=== PATIENT | female | born 1960 | race Caucasian/White ===

== ENCOUNTER 2016-10-15 17:09 | Inpatient (IN) | payer OTHER ==
[~2016-10-15] VITALS: Ht 152.4 cm; Wt 52.6 kg
[~2016-10-15 17:09] MED LIST: AMLO-218 PO; HYDR-902 PO; IBUP800T25 PO
[2016-10-15 21:30] VITALS: Ht 152.4 cm; Wt 52.6 kg
[2016-10-15 22:15] VITALS: BP 119/58; RESP 20
[2016-10-15] MEDS ORDERED: GABA300C16 PO (22:25)
[2016-10-15] MEDS ORDERED: HYDR25TA6 PO (22:26)
[2016-10-15] MEDS ORDERED: LOSA100T7 PO (22:27)
[2016-10-15] MEDS ORDERED: OMEP20CA16 PO (22:29)
[2016-10-15] MEDS ORDERED: METHYLPRED. NA SUCC 1,000 MG in DEXTROSE 5% 50 ML IVPB SCH (22:30)
[2016-10-15] MEDS: HYDROCODONE/APAP (10/325) TAB PO PRN (22:55)
[2016-10-15] MEDS: GABAPENTIN 300 MG CAP PO SCH (23:26)
[2016-10-15] MEDS: DOCUSATE SODIUM 100 MG CAP PO SCH (23:26)
[2016-10-15] MEDS ORDERED: ACETAMINOPHEN 325 MG TAB PO PRN (23:30)
[2016-10-15] MEDS ORDERED: NACL 0.9% 3 ML SYG IV SCH (23:30)
--- NOTE | 2016-10-15 23:59 | HP ---
Date/Time of Note Date/Time of Note DATE: 10/15/16 TIME: 23:59 Assessment/Plan VTE Prophylaxis VTE Prophylaxis Intervention: SCD's Assessment/Plan Chief Complaint/Hosp Course This is a 56 year female being admitted to the [facility] floor for: #1 possible MS exacerbation: At the current time we will continue patient on IV said try Medrol 1000 mg every 24 hours. Patient received an initial dose at the transferring facility, I will continue this treatment timed every 24hrs from her inital dose at the transferring facility. Will consult neurology, we will see if patient's outpatient neurologist comes to [facility]. Will also continue patient's home medications. #2 Speech/swallow dysfunction: We will order ultrasound of the neck to evaluate the thyroid as her imaging studies that show possible lesion in the thyroid, consult ENT. #3 thyroid lesion: Though there is no overt lesion palpated on examination there was one seen on the MRI studies. Will order ultrasound of the thyroid for further evaluation. Will order thyroid studies. #4 hypertension: Continue patient's home medications #5 hyperlipidemia: Continue patient's home medication DVT and GI prophylaxis: SCDs, Protonix Further treatment strategy as per the clinical course Problems: HPI/ROS Admit Date/Time Admit Date/Time Oct 15, 2016 at 21:03 Hx of Present Illness Chief complaint: Body aches, weakness This is a 56 year female who was transferred from an outside facility complaining of body aches and feeling dizzy since Tuesday. Patient was visiting [place] and was in a [facility] she started noticing symptoms of body aches and dizziness and numbness and soreness in her legs. At the current time she still feels weak in her left lower extremity compared to her right. She was diagnosed with possible MS approximately 6 years ago however was never confirmed. She recently was seen by a new neurologist who ordered an MRI scan which showed possible demyelinating disease representing possible multiple sclerosis. She is scheduled to go back to him to order lumbar tap. The daughter does state that the family has noticed some changes in her speech over the last year approximately at times difficult for them to understand her. Patient also states that at times she notices a lot of saliva that she has a swallow however denies any pain on swallowing. Allergies: NKDA Medications: See WINSOME SANTANA Const: As per HPI Eyes : No pain discharge or redness or change in visual acuity ENT: As per HPI Respiratory: No shortness of breath, cough, sputum, wheezing, or pleuritic pain Cardiovascular: No chest pain, palpitation, PND, or edema GI : no change in appetite, abdominal pain, nausea, vomiting, diarrhea, constipation, or change in the color his stool Genitourinary: No dysuria, hematuria, flank pain , discharge or CVA tenderness Musculoskeletal: As per HPI Skin: No rash, bruising or hives Neuro: As per HPI Endocrine: No polyuria, polydipsia, temperature intolerance Psych: No hallucination, depression, anxiety or suicidal ideation PMH/Family/Social Past Medical History Possible multiple sclerosis, hypertension, hyperlipidemia Past Surgical History 4, cholecystectomy Family History Significant Family History: diabetes (Mom), hypertension Social History Alcohol Use: none Smoking Status: Never smoker Drug Use: none Exam/Review of Systems Vital Signs Vitals Vital Signs Date Time Temp Pulse Resp B/P Pulse Ox O2 Delivery O2 Flow Rate FiO2 10/15/16 22:15 98.3 96 20 119/58 96 Exam Exam General: Patient is a well-developed female laying in bed in no acute distress HEENT: Atraumatic, normocephalic. The pupils are equal, round and reactive. Extraocular motor are intact Neck: Supple with full range of motion. No rigidity or meningismus Chest: Nontender Lungs: Clear to auscultation bilaterally no crackles rales or wheezing Heart: Normal S1-S2, Regular rhythm and rate. No murmur, S3, or S4 Abdomen: Soft , nontender, nondistended , bowel sounds are present. No guarding no rebound tenderness , No masses or organomegaly. No costovertebral temporal angle mass Extremities: Normal to inspection, no edema no cyanosis Neurologic: Normal mental status, speech appears relatively normal though she is whispering, cranial nerves II through XII are intact, motor and sensory are intact, there does appear to be some mild weakness of the left lower extremity compared to the right. Bilateral upper extremities strength is 5 out of 5 Additional Comments Outpatient MRI records were reviewed. Shows possibility of the myelinating disease representing possible multiple sclerosis. Please please see images in the chart for further information Medications Medications Current Medications Methylprednisolone Sodium Succinate/ Dextrose (Solu-Medrol/D5W) 50 ml @ 100 mls /hr Q24H IVPB ; Start 10/16/16 at 16:00 Acetaminophen/ Hydrocodone Bitart ([place] (10/325)) 1 tab Q6H PRN PO PAIN Last administered on 10/15/16 22:55; Admin Dose 1 TAB; Start 10/15/16 at 22:30 Ondansetron HCl (Zofran Inj) 4 mg Q6H PRN IV NAUSEA AND/OR VOMITING; Start at 23:30 Acetaminophen (Tylenol Tab) 650 mg Q6H PRN PO PAIN LEVEL 1-3 OR FEVER; Start at 23:30 Docusate Sodium (Colace) 100 mg Q12H PO Last administered on 10/15/16 23:26; Admin Dose 100 MG; Start 10/15/16 at 23:30 Bisacodyl (Dulcolax) 5 mg DAILY PO ; Start 10/16/16 at 09:00 Pantoprazole (Protonix Iv) 40 mg DAILY@06 IV ; Start 10/16/16 at 06:00 Amlodipine Besylate (Norvasc) 10 mg DAILY PO ; Start 10/16/16 at 09:00 Gabapentin (Neurontin) 300 mg BID PO Last administered on 10/15/16 23:26; Admin Dose 300 MG; Start 10/15/16 at 23:30 Hydrochlorothiazide (Hydrochlorothiazide) 25 mg DAILY PO ; Start 10/16/16 at 09: 00 Losartan Potassium (Cozaar) 100 mg DAILY PO ; Start 10/16/16 at 09:00 CLIVE ZURITA Oct 15, 2016 23:59
[2016-10-16 02:00] VITALS: BP 112/60; RESP 20
[2016-10-16] MEDS: PANTOPRAZOLE 40 MG INJ IV SCH (06:58)
[2016-10-16 07:25] VITALS: BP 128/59; RESP 18
[2016-10-16 07:33] LABS: ADD SCAN DIFF NO
[2016-10-16 07:39] LABS: HEMATOCRIT 36.9 % (37.0-47.0); HEMOGLOBIN 12.5 g/dl (12.0-16.0); MEAN CORPUSCULAR HEMOGLOBIN 29.6 pg (29.0-33.0); MEAN CORPUSCULAR HGB CONC 33.9 g/dl (32.0-37.0); MEAN CORPUSCULAR VOLUME 87.4 fl (82.0-101.0); MEAN PLATELET VOLUME 10.2 fl (7.4-10.4); PLATELET COUNT 279 10^3/UL (140-415); RED BLOOD COUNT 4.22 10^6/ul (4.20-5.40); WHITE BLOOD COUNT 9.2 10^3/ul (4.8-10.8)
[2016-10-16 07:57] LABS: ALBUMIN 4.7 g/dl (3.3-4.9); ALBUMIN/GLOBULIN RATIO 1.62; BILIRUBIN,INDIRECT 0.4 mg/dl (0-1.1); BILIRUBIN,TOTAL 0.4 mg/dl (0.2-1.3); CALCIUM 10.4 mg/dl (8.4-10.2); CHOL/HDL RATIO 3.6 RATIO; CREATININE 0.8 mg/dl (0.44-1.00); POTASSIUM 4.3 mmol/L (3.5-5.1); TOTAL PROTEIN 7.6 g/dl (6.1-8.1)
[2016-10-16] MEDS: HYDROCODONE/APAP (10/325) TAB PO PRN (09:10)
[2016-10-16] MEDS: BISACODYL (EC) 5 MG TAB PO SCH (09:10)
[2016-10-16] MEDS: AMLODIPINE 10 MG TAB PO SCH (09:11)
[2016-10-16] MEDS: BACLOFEN 10 MG TAB PO SCH ×3 (09:11→20:21)
[2016-10-16] MEDS: HYDROCHLOROTHIAZIDE 25 MG TAB PO SCH (09:11)
[2016-10-16] MEDS: LOSARTAN 50 MG TAB PO SCH (09:11)
[2016-10-16] MEDS: GABAPENTIN 300 MG CAP PO SCH ×2 (09:11→20:21)
[2016-10-16 09:19] LABS: THYROID STIMULATING HORMONE 0.292 MIU/L (0.465-4.680)
--- NOTE | 2016-10-16 10:31 | RADRPT ---
PROCEDURE: US Thyroid. CLINICAL INDICATION: Thyroid nodule. TECHNIQUE: High-resolution sonography of the thyroid was performed in the axial and sagittal plane s. COMPARISON: None. FINDINGS: The right lobe measures 4.9 x 1.3 x 1.4 cm. The left lobe measures 4.6 x 1.3 x 1.7 cm. The isthmus measures 0.2 cm. There is a cystic nodule in the mid right lobe measuring 0.6 x 0.7 x 0.5 cm, a hypoechoic nodule in the mid right lobe measuring 0.2 cm, a cystic nodule in the mid left lobe measuring 0.6 x 0.6 x 0.4 cm. Thyroid echogenicity is normal. The thyroid is normal in size. IMPRESSION: 1. Small nodules bilaterally, probably benign. No further evaluation required. 2. Otherwise normal thyroid ultrasound. RPTAT: QQ .Mingo Preston MD, Date Time Electronically viewed and signed by .Mingo Preston MD, on 10/16/2016 10:31 .R/
[2016-10-16] MEDS: DOCUSATE SODIUM 100 MG CAP PO SCH (12:11)
[2016-10-16 13:28] LABS: LYMPHOCYTES # 0.9 10^3/ul (0.8-2.9); NEUTROPHIL # 8.2 10^3/ul (1.6-7.5)
[2016-10-16 14:25] VITALS: BP 108/66; RESP 18
[2016-10-16] MEDS: METHYLPRED. NA SUCC 1,000 MG in DEXTROSE 5% 50 ML IVPB SCH (17:37)
--- NOTE | 2016-10-16 19:30 | HP ---
Date/Time of Note Date/Time of Note DATE: 10/16/16 TIME: 19:28 Assessment/Plan VTE Prophylaxis VTE Prophylaxis Intervention: SCD's Lines/Catheters [facility]from [facility] Saline Lock Urinary Cath still in place: No Assessment/Plan Assessment/Plan This is a 56 year female being admitted to the [facility] floor for: #1 possible MS exacerbation: Continue high dose steroids for 3 days await neurology review and recs RE: Lumbar puncture, defer to neurology Start meclizine PRN if dizziness becomes a problem #2 TSH low: Repeat and get full thyroid profile, F/u thyroid USS #3 hypertension: Continue patient's home medications #4 hyperlipidemia: Continue patient's home medication DVT and GI prophylaxis: SCDs, Protonix Further treatment strategy as per the clinical course HPI/ROS Admit Date/Time Admit Date/Time Oct 15, 2016 at 21:03 Hx of Present Illness Patient remains lethargic with occasional dizziness. not dizzy at this time. doesn't want meclizine PMH/Family/Social Social History Alcohol Use: none Smoking Status: Never smoker Drug Use: none Exam/Review of Systems Vital Signs Vitals Vital Signs Date Time Temp Pulse Resp B/P Pulse Ox O2 Delivery O2 Flow Rate FiO2 10/16/16 14:25 98.0 80 18 108/66 93 Intake and Output 10/15/16 10/15/16 10/16/16 15:00 23:00 07:00 Intake Total 240 ml Balance 240 ml Exam Exam General: Patient is a well-developed female laying in bed in no acute distress, lethargic HEENT: Atraumatic, normocephalic. The pupils are equal, round and reactive. Extraocular motor are intact Neck: Supple with full range of motion. No rigidity or meningismus Chest: Nontender Lungs: Clear to auscultation bilaterally no crackles rales or wheezing Heart: Normal S1-S2, Regular rhythm and rate. No murmur, S3, or S4 Abdomen: Soft , nontender, nondistended , bowel sounds are present. No guarding no rebound tenderness , No masses or organomegaly. No costovertebral temporal angle mass Extremities: Normal to inspection, no edema no cyanosis Neurologic: Normal mental status, spech normal, cranial nerves II through XII are intact, motor and sensory are intact, agree with mild weakness of the left lower extremity compared to the right. Bilateral upper extremities strength is 5 out of 5 Labs Result Diagram: 10/16/16 0658 10/16/16 06 Medications Medications Current Medications Methylprednisolone Sodium Succinate/ Dextrose (Solu-Medrol/D5W) 50 ml @ 100 mls /hr Q24H IVPB Last administered on 10/16/16 17:37; Admin Dose 100 MLS/HR; Start 10/16/16 at 16:00 Acetaminophen/ Hydrocodone Bitart ([place] (10/325)) 1 tab Q6H PRN PO PAIN Last administered on 10/16/16 09:10; Admin Dose 1 TAB; Start 10/15/16 at 22:30 Ondansetron HCl (Zofran Inj) 4 mg Q6H PRN IV NAUSEA AND/OR VOMITING; Start at 23:30 Acetaminophen (Tylenol Tab) 650 mg Q6H PRN PO PAIN LEVEL 1-3 OR FEVER; Start at 23:30 Docusate Sodium (Colace) 100 mg Q12H PO Last administered on 10/16/16 12:11; Admin Dose 100 MG; Start 10/15/16 at 23:30 Bisacodyl (Dulcolax) 5 mg DAILY PO Last administered on 10/16/16 09:10; Admin Dose 5 MG; Start 10/16/16 at 09:00 Pantoprazole (Protonix Iv) 40 mg DAILY@06 IV Last administered on 10/16/16 06: 58; Admin Dose 40 MG; Start 10/16/16 at 06:00 Amlodipine Besylate (Norvasc) 10 mg DAILY PO Last administered on 10/16/16 09: 11; Admin Dose 10 MG; Start 10/16/16 at 09:00 Gabapentin (Neurontin) 300 mg BID PO Last administered on 10/16/16 09:11; Admin Dose 300 MG; Start 10/15/16 at 23:30 Hydrochlorothiazide (Hydrochlorothiazide) 25 mg DAILY PO Last administered on 09:11; Admin Dose 25 MG; Start 10/16/16 at 09:00 Losartan Potassium (Cozaar) 100 mg DAILY PO Last administered on 10/16/16 09: 11; Admin Dose 100 MG; Start 7/15/17 at 09:00 Baclofen (Lioresal) 5 mg TID PO Last administered on 10/16/16t 12:11; Admin Dose 5 MG; Start 10/16/16 at 09:00 KEILA COLLINS Oct 16, 2016 19:30
[2016-10-16 20:47] VITALS: BP 103/54; RESP 20
[2016-10-17 02:00] VITALS: BP 123/60; RESP 20
[2016-10-17] MEDS: PANTOPRAZOLE 40 MG INJ IV SCH (05:37)
[2016-10-17 06:24] LABS: ADD SCAN DIFF NO
[2016-10-17 06:29] LABS: BASOPHILS % 0.1 % (0.0-2.0); HEMATOCRIT 35.4 % (37.0-47.0); LYMPHOCYTES # 1.1 10^3/ul (0.8-2.9); LYMPHOCYTES % 6.4 % (15.0-51.0); MEAN CORPUSCULAR HGB CONC 33.9 g/dl (32.0-37.0); MEAN CORPUSCULAR VOLUME 88.5 fl (82.0-101.0); MEAN PLATELET VOLUME 10.1 fl (7.4-10.4); MONOCYTE # 0.3 10^3/ul (0.3-0.9); MONOCYTES % 1.6 % (0.0-11.0); NEUTROPHIL # 16.1 10^3/ul (1.6-7.5); NEUTROPHILS % 91.2 % (39.0-77.0); PLATELET COUNT 287 10^3/UL (140-415); RED CELL DISTRIBUTION WIDTH 12.9 % (11.5-14.5); WHITE BLOOD COUNT 17.7 10^3/ul (4.8-10.8)
[2016-10-17 06:53] LABS: T3 UPTAKE 32.7 % (23.5-40.5)
[2016-10-17 06:54] LABS: CALCIUM 10.6 mg/dl (8.4-10.2); CREATININE 0.89 mg/dl (0.44-1.00); MAGNESIUM 2.1 mg/dl (1.7-2.5); POTASSIUM 3.8 mmol/L (3.5-5.1)
[2016-10-17 07:06] LABS: THYROID STIMULATING HORMONE 0.483 MIU/L (0.465-4.680)
[2016-10-17 08:20] VITALS: BP 116/57; RESP 18
[2016-10-17] MEDS: AMLODIPINE 10 MG TAB PO SCH (09:10)
[2016-10-17] MEDS: BACLOFEN 10 MG TAB PO SCH ×3 (09:11→20:36)
[2016-10-17] MEDS: LOSARTAN 50 MG TAB PO SCH (09:11)
[2016-10-17] MEDS: HYDROCHLOROTHIAZIDE 25 MG TAB PO SCH (09:11)
[2016-10-17] MEDS: GABAPENTIN 300 MG CAP PO SCH ×2 (09:11→20:36)
[2016-10-17] MEDS: BISACODYL (EC) 5 MG TAB PO SCH (09:11)
[2016-10-17] MEDS: DOCUSATE SODIUM 100 MG CAP PO SCH ×3 (11:30→22:52)
--- NOTE | 2016-10-17 14:02 | RADRPT ---
PROCEDURE: CT Brain without. CLINICAL INDICATION: Concern for hemorrhage, pain. TECHNIQUE: A CT of the brain was performed on multidetector high-resolution CT scanner utilizing a xial sections from the skull base through the vertex without contrast. The scan was reviewed in sof t tissue brain and high frequency resolution bone algorithm windows. Images were reviewed on a high -resolution PACS workstation. One or more the following does reduction techniques were utilized: Aut omated exposure control, adjustment of the mA/ or kV according to patient's size, or use of iterativ e reconstruction technique. The exam CTDI = 44.26 mGy and the DLP = 630.2 mGy-cm. COMPARISON: Brain CT 02/07/2016. FINDINGS: The ventricles and sulci are mildly prominent indicative of volume loss. There is no intracranial h emorrhage, mass effect or midline shift. No abnormal intra-axial or extra-axial fluid collections a re seen. The [place]/white matter differentiation is preserved. There are mild scattered foci of hypoattenuation in the white matter, which are nonspecific in etiol ogy but likely reflect chronic small vessel ischemic changes. The visualized paranasal sinuses are essentially clear. IMPRESSION: 1. No acute intracranial hemorrhage, transcortical infarction or mass effect. 2. Mild chronic small vessel ischemic changes. 3. Mild generalized cerebral volume loss. RPTAT: HFN .Jerardo Charles MD, MD Date Time Electronically viewed and signed by .Jerardo Charles MD, MD on 10/17/2016 14:02 .N/
[2016-10-17 14:32] VITALS: BP 108/56; RESP 20
[2016-10-17 14:33] LABS: INR 1.02; PARTIAL THROMBOPLASTIN TIME 20.6 Sec (25.0-35.0); PROTIME 13.4 Sec (12.2-14.2)
--- NOTE | 2016-10-17 15:42 | PN ---
Date/Time of Note Date/Time of Note DATE: 10/17/16 TIME: 15:38 Assessment/Plan VTE Prophylaxis VTE Prophylaxis Intervention: SCD's Lines/Catheters IV C[facility]ter Type (from [facility]): Saline Lock Urinary Cath still in place: No Assessment/Plan Assessment/Plan 56 year female with with #1 MS exacerbation: Continue high dose steroids for 3 days * Diagnosis of MS has never been conclusive, patient seems to be responding to high-dose steroids however. She is planned for lumbar puncture today to help with confirmatory diagnosis of MS. Per radiology recommendation she will get a CAT scan first #2 TSH low: This was repeated and found to be normal, also thyroid ultrasound just showed benign nodules. No further intervention required. #3 hypertension: Controlled / continue patient's home medications #4 hyperlipidemia: Continue patient's home medication DVT and GI prophylaxis: SCDs, Protonix Further treatment strategy as per the clinical course Subjective 24 Hr Interval Summary Free Text/Dictation no new complaints planned for LP today Musculoskeletal: restricted range of motion ( improving ) Exam/Review of Systems Vital Signs Vitals Vital Signs Date Time Temp Pulse Resp B/P Pulse Ox O2 Delivery O2 Flow Rate FiO2 10/17/16 14:32 98.2 84 20 108/56 96 Intake and Output 10/16/16 10/16/16 10/17/16 15:00 23:00 07:00 Intake Total 920 ml 600 ml Balance 920 ml 600 ml Exam Constitutional: alert, oriented Head: atraumatic, normocephalic Neck: non-tender, supple Respiratory: clear to auscultation Cardiovascular: regular rate and rhythm Gastrointestinal: S/ NT / ND / +BS Extremities: no edema, good radial pulses Results Result Diagram: 10/17/16 0556 10/17/16 0556 Results 24 hrs Laboratory Tests Test 10/17/16 05:56 10/17/16 14:00 White Blood Count 17.7 #H Red Blood Count 4.00 L Hemoglobin 12.0 Hematocrit 35.4 L Mean Corpuscular Volume 88.5 Mean Corpuscular Hemoglobin 30.0 Mean Corpuscular Hemoglobin Concent 33.9 Red Cell Distribution Width 12.9 Platelet Count 287 Mean Platelet Volume 10.1 Neutrophils % 91.2 H Lymphocytes % 6.4 L Monocytes % 1.6 Eosinophils % 0.0 Basophils % 0.1 Nucleated Red Blood Cells % 0.0 Neutrophils # 16.1 H Lymphocytes # 1.1 Monocytes # 0.3 Eosinophils # 0.0 Basophils # 0.0 Nucleated Red Blood Cells # 0.0 Sodium Level 144 Potassium Level 3.8 Chloride Level 102 Carbon Dioxide Level 25 Anion Gap 21 H Blood Urea Nitrogen 25 #H Creatinine 0.89 Glucose Level 150 Calcium Level 10.6 H Magnesium Level 2.1 Thyroid Stimulating Hormone (TSH) 0.483 Free Thyroxine Index 2.49 Thyroxine (T4) 7.6 Triiodothyronine (T3) Uptake 32.7 Prothrombin Time 13.4 Prothrombin Time Ratio 1.0 INR International Normalized Ratio 1.02 Activated Partial Thromboplast Time 20.6 L Medications Medications Current Medications Methylprednisolone Sodium Succinate/ Dextrose (Solu-Medrol/D5W) 50 ml @ 100 mls /hr Q24H IVPB Last administered on 10/16/16 17:37; Admin Dose 100 MLS/HR; Start 10/16/16 at 16:00 Acetaminophen/ Hydrocodone Bitart ([place] (10/325)) 1 tab Q6H PRN PO PAIN Last administered on 10/16/16 09:10; Admin Dose 1 TAB; Start 10/15/16 at 22:30; Status Future hold Ondansetron HCl (Zofran Inj) 4 mg Q6H PRN IV NAUSEA AND/OR VOMITING; Start at 23:30 Acetaminophen (Tylenol Tab) 650 mg Q6H PRN PO PAIN LEVEL 1-3 OR FEVER; Start at 23:30 Docusate Sodium (Colace) 100 mg Q12H PO Last administered on 10/17/16 00:00; Admin Dose 100 MG; Start 10/15/16 at 23:30 Bisacodyl (Dulcolax) 5 mg DAILY PO Last administered on 10/17/16 09:11; Admin Dose 5 MG; Start 10/16/16 at 09:00 Pantoprazole (Protonix Iv) 40 mg DAILY@06 IV Last administered on 10/17/16 05: 37; Admin Dose 40 MG; Start 10/16/16 at 06:00 Amlodipine Besylate (Norvasc) 10 mg DAILY PO Last administered on 10/17/16 09: 10; Admin Dose 10 MG; Start 10/16/16 at 09:00 Gabapentin (Neurontin) 300 mg BID PO Last administered on 10/17/16 09:11; Admin Dose 300 MG; Start 10/15/16 at 23:30 Hydrochlorothiazide (Hydrochlorothiazide) 25 mg DAILY PO Last administered on 09:11; Admin Dose 25 MG; Start 10/16/16 at 09:00 Losartan Potassium (Cozaar) 100 mg DAILY PO Last administered on 10/17/16 09: 11; Admin Dose 100 MG; Start 10/16/16 at 09:00 Baclofen (Lioresal) 5 mg TID PO Last administered on 10/17/16 09:11; Admin Dose 5 MG; Start 10/16/16 at 09:00 KEILA COLLINS Oct 17, 2016 15:42
--- NOTE | 2016-10-17 16:16 | RADRPT ---
PROCEDURE: FLUOROSCOPIC GUIDED LUMBAR PUNCTURE CLINICAL INDICATION: Headache TECHNIQUE: After the risks and benefits of the procedure were explained to the patient, informed consent was ob tained. Risks include bleeding, infection, and headache. A procedural pause was performed to ensure that the correct procedure was being performed on the correct patient. Fluoroscopy was utilized to d etermine the best entry site. The patient's skin was then prepped and draped in the usual sterile fa shion. 1% lidocaine was utilized for local anesthesia. Under direct fluoroscopic visualization, the spinal needle was advanced into the thecal sac via translaminar approach at the L3 level. Clear CSF returned. The opening pressure was 19 cm of water. A total of 9 cc were collected and sent to the [facility] for analysis. The needle was removed. The patient tolerated the procedure well and there we re no immediate complications. Fluoroscopy time was 0.6 minutes and 3 additional images are submitte d. COMPARISON: None FINDINGS: Opening pressure: 19 cm of water. CSF collected: 9 cc of {<clear>} fluid. RPTAT: QQ IMPRESSION: Status post fluoroscopically guided lumbar puncture. .Katt Thomas MD, MD Date Time Electronically viewed and signed by .Katt Thomas MD, MD on 10/17/2016 16:15 .Ted/
[2016-10-17] MEDS: METHYLPRED. NA SUCC 1,000 MG in DEXTROSE 5% 50 ML IVPB SCH (17:55)
[2016-10-17 19:14] LABS: # OF CELLS COUNTED 100
[2016-10-17 19:41] LABS: GLUCOSE,CSF 92 mg/dl (50-80)
[2016-10-17] MEDS: HYDROCODONE/APAP (10/325) TAB PO PRN (19:57)
[2016-10-17 20:04] LABS: CSF COLOR COLORLESS; CSF#TUBES REC'D 3
[2016-10-17 20:05] LABS: %CREANATED RBC CSF 0 %; CSF#TUBE COUNT TUBE#3
[2016-10-17 20:49] VITALS: BP 121/60; RESP 18
[2016-10-18 03:00] VITALS: BP 111/58; RESP 18
[2016-10-18 05:13] LABS: ADD SCAN DIFF NO
[2016-10-18] MEDS: PANTOPRAZOLE 40 MG INJ IV SCH (05:15)
[2016-10-18 05:17] LABS: HEMATOCRIT 34.4 % (37.0-47.0); HEMOGLOBIN 11.3 g/dl (12.0-16.0); LYMPHOCYTES # 0.8 10^3/ul (0.8-2.9); LYMPHOCYTES % 5.4 % (15.0-51.0); MEAN CORPUSCULAR HEMOGLOBIN 29.1 pg (29.0-33.0); MEAN CORPUSCULAR HGB CONC 32.8 g/dl (32.0-37.0); MEAN CORPUSCULAR VOLUME 88.7 fl (82.0-101.0); MEAN PLATELET VOLUME 10.4 fl (7.4-10.4); MONOCYTE # 0.2 10^3/ul (0.3-0.9); MONOCYTES % 1.4 % (0.0-11.0); NEUTROPHIL # 12.9 10^3/ul (1.6-7.5); NEUTROPHILS % 92.3 % (39.0-77.0); PLATELET COUNT 262 10^3/UL (140-415); RED BLOOD COUNT 3.88 10^6/ul (4.20-5.40); RED CELL DISTRIBUTION WIDTH 13.2 % (11.5-14.5)
[2016-10-18 05:51] LABS: CALCIUM 10.1 mg/dl (8.4-10.2); CREATININE 0.89 mg/dl (0.44-1.00); POTASSIUM 4.2 mmol/L (3.5-5.1)
[2016-10-18 08:00] VITALS: BP 115/55; RESP 16
[2016-10-18] MEDS: ONDANSETRON 4 MG INJ IV PRN ×2 (08:21→15:33)
[2016-10-18] MEDS: BISACODYL (EC) 5 MG TAB PO SCH ×2 (09:00→10:08)
[2016-10-18] MEDS: HYDROCHLOROTHIAZIDE 25 MG TAB PO SCH ×2 (09:00→10:08)
[2016-10-18] MEDS: AMLODIPINE 10 MG TAB PO SCH ×2 (09:00→10:09)
[2016-10-18] MEDS: LOSARTAN 50 MG TAB PO SCH ×2 (09:00→10:08)
[2016-10-18] MEDS: BACLOFEN 10 MG TAB PO SCH ×3 (09:00→20:43)
[2016-10-18] MEDS: GABAPENTIN 300 MG CAP PO SCH ×2 (10:08→20:43)
[2016-10-18] MEDS: DOCUSATE SODIUM 100 MG CAP PO SCH (10:09)
[2016-10-18 14:00] VITALS: BP 123/58; RESP 18
--- NOTE | 2016-10-18 14:24 | PN ---
Date/Time of Note Date/Time of Note DATE: 10/18/16 TIME: 14:21 Assessment/Plan VTE Prophylaxis VTE Prophylaxis Intervention: SCD's Lines/Catheters IV C[facility]ter Type (from [facility] Saline Lock Urinary Cath still in place: No Assessment/Plan Chief Complaint/Hosp Course #1 MS exacerbation versus movement disorder: Continue high dose steroids for 3 days Diagnosis of MS has never been conclusive, patient seems to be responding to high-dose steroids however. LP shows normal protein, CT shows no significant findings Follow up with neurology recommendations #2 Muscle pain in the lower extremities secondary to fasciculations and jerking Continue baclofen and will add Valium #3 hypertension: Controlled / continue patient's home medications #4 hyperlipidemia: Continue patient's home medication DVT and GI prophylaxis: SCDs, Protonix Problems: Subjective 24 Hr Interval Summary Musculoskeletal: other (Muscle spasms) Exam/Review of Systems Vital Signs Vitals Vital Signs Date Time Temp Pulse Resp B/P Pulse Ox O2 Delivery O2 Flow Rate FiO2 10/18/16 08:00 98.0 86 16 115/55 92 Intake and Output 10/17/16 10/17/16 10/18/16 14:59 22:59 06:59 Intake Total 870 ml 500 ml Balance 870 ml 500 ml Exam Constitutional: alert Respiratory: clear to auscultation Cardiovascular: regular rate and rhythm Gastrointestinal: soft, No distended Musculoskeletal: nl extremities to inspection Results Result Diagram: 10/18/16 0431 10/18/16 0431 Results 24 hrs Laboratory Tests Test 10/17/16 15:30 10/18/16 04:31 CSF Tubes Submitted 3 CSF Volume 9.0 CSF Appearance CLEAR CSF Color COLORLESS CSF WBC 8 CSF RBC 0 CSF Cell Count Tube # TUBE#3 CSF Total Cells Counted 100 CSF Neutrophils % 0 CSF Lymphocytes % 95 CSF Monocytes % 5 CSF Crenated Cells 0 CSF Glucose 92 H CSF Total Protein 37 White Blood Count 14.0 #H Red Blood Count 3.88 L Hemoglobin 11.3 L Hematocrit 34.4 L Mean Corpuscular Volume 88.7 Mean Corpuscular Hemoglobin 29.1 Mean Corpuscular Hemoglobin Concent 32.8 Red Cell Distribution Width 13.2 Platelet Count 262 Mean Platelet Volume 10.4 Neutrophils % 92.3 H Lymphocytes % 5.4 L Monocytes % 1.4 Eosinophils % 0.0 Basophils % 0.0 Nucleated Red Blood Cells % 0.0 Neutrophils # 12.9 H Lymphocytes # 0.8 Monocytes # 0.2 L Eosinophils # 0.0 Basophils # 0.0 Nucleated Red Blood Cells # 0.0 Sodium Level 143 Potassium Level 4.2 Chloride Level 100 Carbon Dioxide Level 29 Anion Gap 18 H Blood Urea Nitrogen 24 H Creatinine 0.89 Glucose Level 151 Calcium Level 10.1 Medications Medications Current Medications Methylprednisolone Sodium Succinate/ Dextrose (Solu-Medrol/D5W) 50 ml @ 100 mls /hr Q24H IVPB Last administered on 10/17/16 17:55; Admin Dose 100 MLS/HR; Start 10/16/16 at 16:00 Acetaminophen/ Hydrocodone Bitart ([place] ()) 1 tab Q6H PRN PO PAIN Last administered on 10/17/16 19:57; Admin Dose 1 TAB; Start 10/15/16 at 22:30; Status Future hold Ondansetron HCl (Zofran Inj) 4 mg Q6H PRN IV NAUSEA AND/OR VOMITING Last administered on 10/18/16 08:21; Admin Dose 4 MG; Start 10/15/16 at 23:30 Acetaminophen (Tylenol Tab) 650 mg Q6H PRN PO PAIN LEVEL 1-3 OR FEVER; Start at 23:30 Docusate Sodium (Colace) 100 mg Q12H PO Last administered on 10/18/16 10:09; Admin Dose 100 MG; Start 10/15/16 at 23:30 Bisacodyl (Dulcolax) 5 mg DAILY PO Last administered on 10/18/16 10:08; Admin Dose 5 MG; Start 10/16/16 at 09:00 Pantoprazole (Protonix Iv) 40 mg DAILY@06 IV Last administered on 10/18/16 05: 15; Admin Dose 40 MG; Start 10/16/16 at 06:00 Amlodipine Besylate (Norvasc) 10 mg DAILY PO Last administered on 10/18/16 10: 09; Admin Dose 10 MG; Start 10/16/16 at 09:00 Gabapentin (Neurontin) 300 mg BID PO Last administered on 10/18/16 10:08; Admin Dose 300 MG; Start 10/15/16 at 23:30 Hydrochlorothiazide (Hydrochlorothiazide) 25 mg DAILY PO Last administered on 10:08; Admin Dose 25 MG; Start 10/16/16 at 09:00 Losartan Potassium (Cozaar) 100 mg DAILY PO Last administered on 10/18/16 10: 08; Admin Dose 100 MG; Start 10/16/16 at 09:00 Baclofen (Lioresal) 5 mg TID PO Last administered on 10/18/16 10:08; Admin Dose 5 MG; Start 10/16/16 at 09:00 ESTEPHANIE CARRILLO Oct 18, 2016 14:24
[2016-10-18] MEDS: METHYLPRED. NA SUCC 1,000 MG in DEXTROSE 5% 50 ML IVPB SCH (15:33)
[2016-10-18 20:04] VITALS: BP 116/56; RESP 17
[2016-10-18] MEDS: DIAZEPAM 2 MG TAB PO SCH (20:43)
[2016-10-19] MEDS: DOCUSATE SODIUM 100 MG CAP PO SCH ×2 (00:33→13:03)
[2016-10-19 02:11] VITALS: BP 109/55; RESP 18
[2016-10-19] MEDS: PANTOPRAZOLE 40 MG INJ IV SCH (06:00)
[2016-10-19 06:29] LABS: ADD SCAN DIFF NO
[2016-10-19 06:33] LABS: BASOPHILS % 0.1 % (0.0-2.0); HEMATOCRIT 36.1 % (37.0-47.0); HEMOGLOBIN 12.1 g/dl (12.0-16.0); LYMPHOCYTES # 0.8 10^3/ul (0.8-2.9); LYMPHOCYTES % 7.1 % (15.0-51.0); MEAN CORPUSCULAR HEMOGLOBIN 29.7 pg (29.0-33.0); MEAN CORPUSCULAR HGB CONC 33.5 g/dl (32.0-37.0); MEAN CORPUSCULAR VOLUME 88.5 fl (82.0-101.0); MEAN PLATELET VOLUME 10.4 fl (7.4-10.4); MONOCYTE # 0.4 10^3/ul (0.3-0.9); MONOCYTES % 3.2 % (0.0-11.0); NEUTROPHIL # 10.4 10^3/ul (1.6-7.5); NEUTROPHILS % 88.2 % (39.0-77.0); PLATELET COUNT 255 10^3/UL (140-415); RED BLOOD COUNT 4.08 10^6/ul (4.20-5.40); RED CELL DISTRIBUTION WIDTH 12.9 % (11.5-14.5); WHITE BLOOD COUNT 11.8 10^3/ul (4.8-10.8)
[2016-10-19 06:58] LABS: CREATININE 0.82 mg/dl (0.44-1.00); POTASSIUM 4.1 mmol/L (3.5-5.1)
[2016-10-19 07:52] VITALS: BP 126/63; RESP 16
[2016-10-19] MEDS: BISACODYL (EC) 5 MG TAB PO SCH (08:28)
[2016-10-19] MEDS: GABAPENTIN 300 MG CAP PO SCH (08:29)
[2016-10-19] MEDS: BACLOFEN 10 MG TAB PO SCH ×2 (08:29→13:03)
[2016-10-19] MEDS: DIAZEPAM 2 MG TAB PO SCH ×2 (08:30→13:03)
[2016-10-19] MEDS: HYDROCHLOROTHIAZIDE 25 MG TAB PO SCH (08:30)
[2016-10-19] MEDS: LOSARTAN 50 MG TAB PO SCH (08:31)
--- NOTE | 2016-10-19 11:46 | PDOCDIS ---
Discharge Instructions CONDITION Patient Condition: Good HOME CARE INSTRUCTIONS: Diet Instructions: Regular ACTIVITY: Activity Restrictions: No Restrictions FOLLOW UP/APPOINTMENTS Follow-up Plan F/U WITH DR DICKEY OF NEUROLOGY AND YOUR PCP IN 1-2 WEEKS ESTEPHANIE CARRILLO Oct 19, 2016 11:45
[2016-10-19] MEDS: AMLODIPINE 10 MG TAB PO SCH (13:04)
[2016-10-19 14:00] VITALS: BP 102/56; RESP 18
--- NOTE | 2016-10-19 15:55 | DS ---
Date/Time of Note Date/Time of Note DATE: 10/19/16 TIME: 15:47 Discharge Summary Admission/Discharge Info Admit Date/Time Oct 15, 2016 at 21:03 Discharge Date/Time October 19 2016 Discharge Diagnosis #1 MS exacerbation versus movement disorder-improvement with high dose steroids for 3 days Diagnosis of MS has never been conclusive, patient did respond high-dose steroids however. LP shows normal protein, MS panel is pending,CT shows no significant findings Follow up with neurologist Dr. Dee as outpatient for results of LP MS panel #2 Muscle pain in the lower extremities secondary to fasciculations and jerking -resolved Continue home baclofen #3 hypertension: Controlled / continue patient's home medications #4 hyperlipidemia: Continue patient's home medication Patient Condition: Good Hx of Present Illness P Hospital Course Patient is a 56-year-old female with a possible history of MS versus movement disorder. Patient presents with possible MS exacerbation was started on high- dose steroids. Patient follows up with Dr. Dee as an outpatient and an LP was ordered showed no signs of infection and normal protein. MS panel was ordered and is pending on discharge but patient improved with 3 days of high-dose steroids. Patient is felt to be stable for discharge with plans for follow-up with Dr. Dee as an outpatient and follow-up with MS panel. international sales manager arranged home health for PT. On day of discharge patient's vitals labs and physical exam are stable, she no acute complaints and questions answered Home Meds Active Scripts Ibuprofen* (Ibuprofen*) 800 Mg Tablet, 800 MG PO Q8, #30 TAB Prov:SANDRO BREWER DO 02/08/16 Amlodipine Besylate* (Norvasc*) 10 Mg Tablet, 10 MG PO DAILY, #30 TAB Prov:SANDRO BREWER DO 02/08/16 Hydrocodone/Acetaminophen ([place] 10-325 Tablet) 1 Each Tablet, 1 TAB PO Q6H Y for PAIN, #30 TAB Prov:SANDRO BREWER DO 02/08/16 Reported Medications Omeprazole* (Omeprazole*) 20 Mg Capsule., 20 MG PO DAILY, #30 CAP 10/15/16 Losartan Potassium* (Losartan Potassium*) 100 Mg Tablet, 100 MG PO DAILY, TAB 10/15/16 Hydrochlorothiazide (Hydrochlorothiazide) 25 Mg Tablet, 25 MG PO DAILY, #30 TAB 10/15/16 Gabapentin* (Gabapentin*) 300 Mg Capsule, 300 MG PO BID, #60 CAP 10/15/16 Follow-up Plan Follow-up with PCP and Dr. Dee of neurology in 1-2 weeks Primary Care Provider [facility] Time spent on discharge: > 30 minutes ESTEPHANIE CARRILLO Oct 19, 2016 15:54
[2016-10-19] MEDS: METHYLPRED. NA SUCC 1,000 MG in DEXTROSE 5% 50 ML IVPB SCH (16:10)
== END 2016-10-19 19:34 | disposition home health service (06) | DRG 60 ==
LOC: PP2 21:03
PROVIDERS: ADMIT Internal Medicine; ATTEND Internal Medicine
PROC: 009U3ZX Drainage of Spinal Canal, Percutaneous Approach, Diagnostic (ICD-10-PCS; principal; 2016-10-17)
PROC: B01B1ZZ Fluoroscopy of Spinal Cord using Low Osmolar Contrast (ICD-10-PCS; 2016-10-17)
DX: G35 Multiple sclerosis (principal); I10 Essential (primary) hypertension; E78.5 Hyperlipidemia, unspecified; M79.1 Myalgia
CPT/HCPCS: 70450; 76536; 80048; 80053; 80061; 82040; 82042; 82784; 82945; 83036; 83735; 83873; 83916; 84157; 84436; 84443; 84479; 85025; 85610; 85730; 89051; C9113; J2405; J2930

== ENCOUNTER → 2017-10-10 | Outpatient (CLI) | END | disposition home or self-care (01) ==

== ENCOUNTER → 2017-10-24 | Outpatient (CLI) | END | disposition home or self-care (01) ==

== ENCOUNTER → 2018-01-30 | Outpatient (CLI) | END | disposition home or self-care (01) ==

== ENCOUNTER → 2018-05-16 | Outpatient (CLI) | payer OTHER ==
[~2018-05-16] MED LIST changes: +GABA300C16 PO; +HYDR-3980 PO; -HYDR-902 PO; +HYDR25TA6 PO; +IBUP-1544 PO; -IBUP800T25 PO; +LOSA100T15 PO; +OMEP20CA16 PO
--- NOTE | 2018-05-16 15:46 | HKNOTE ---
DATE OF SERVICE: 05/16/2018 CHIEF COMPLAINT: Left knee pain. HISTORY OF PRESENT ILLNESS: Ms. Gaspar is a 57-year-old female who is complaining of pain in her le ft knee. She has a history of multiple sclerosis. The pain is mostly on the outside on the back of her left knee. She denies any locking, catching or instability. Due to multiple sclerosis, she is u sing a walker for ambulation. PHYSICAL EXAMINATION: Gait: Nonantalgic gait, reciprocal gait pattern. Left knee: Neutral alignment, tender over the lateral joint line and the posterior knee. A 0 to 110 degrees of flexion. Stable to varus valgus stress. Negative Carmen, negative anterior drawer, neg ative posterior drawer, negative Oliver's. IMAGING: X-rays, left knee, 4 views of the left knee taken today demonstrate medial joint space narr owing. There are no fractures, dislocations, no peripheral osteophytes. DIAGNOSIS: A 57-year-old female with mild left knee osteoarthritis, posterior knee pain. PLAN: We will request authorization for MRI of the left knee. She can continue to take meloxicam as needed. She will follow up in 4 weeks to go over them MRI results. Dictated By: LEOBARDO JEFF/BERTA Conf#: [id number] DID#: [id number]
--- NOTE | 2018-05-17 08:09 | RADRPT ---
PROCEDURE: Left knee series CLINICAL INDICATION: Pain TECHNIQUE: AP weightbearing, PA weightbearing, lateral weightbearing and sunrise views were obtaine d of the left knee. COMPARISON: Left knee series 01/30/2018 FINDINGS: Mild degenerate joint disease of the left knee. No acute fracture or dislocation. No focal bony blast ic or lytic lesion. No evidence of left knee joint effusion. Soft tissues are unremarkable. IMPRESSION: Mild degenerate joint disease of the left knee without acute fracture dislocation or joint effusion. RPTAT:AAJJ Physician Erma Date Time Electronically viewed and signed by Shawn Cobos Physician on 05/17/2018 08:09 BM/
== END | disposition home or self-care (01) ==
LOC: HKI 13:38
PROVIDERS: ATTEND Orthopaedic Surgery Adult Reconstructive Orthopaedic Surgery
DX: M17.12 Unilateral primary osteoarthritis, left knee (principal); M25.562 Pain in left knee; G35 Multiple sclerosis
CPT/HCPCS: 73564; Z7500; G0463

== ENCOUNTER → 2018-06-06 | Outpatient (CLI) | payer OTHER ==
--- NOTE | 2018-06-06 16:58 | HKNOTE ---
DATE OF SERVICE: 06/06/2018 SUBJECTIVE: Ms. Gaspar returned today to go over her left knee MRI results. She states that her le ft knee pain is controlled. She does not require any pain medications. She denies any locking, catc gwendolyn or instability. LEFT KNEE EXAMINATION: Neutral alignment, 0 to 120 degrees range of motion, tender over the lateral joint line, stable to varus and valgus stress, negative Carmen, negative anterior drawer, negative p osterior drawer, negative Oliver's. MRI LEFT KNEE: There is inflammation of the Hoffa's fat pad. There is a previously healed patellar fracture. IMPRESSION: A 57-year-old female with a left knee patellar tendinitis. PLAN: She was instructed to take ibuprofen as needed. She can continue to ice the knee and she will follow up as needed in the future. Dictated By: LEOBARDO JEFF/BERTA Conf#: [id number] DID#: [id number]
== END | disposition home or self-care (01) ==
LOC: HKI 13:58
PROVIDERS: ATTEND Orthopaedic Surgery Adult Reconstructive Orthopaedic Surgery
DX: M76.52 Patellar tendinitis, left knee (principal); M25.562 Pain in left knee
CPT/HCPCS: G0463

== ENCOUNTER → 2018-07-04 | Outpatient (CLI) | payer OTHER ==
--- NOTE | 2018-07-04 22:11 | HKNOTE ---
DATE OF SERVICE: 07/04/2018 CHIEF COMPLAINT: Left knee pain. HISTORY OF PRESENT ILLNESS: Mrs. Gaspar is a 57-year-old female with left knee pain. She states th at the pain is interfering with activities of daily living. She had an MRI that demonstrated inflamm ation of Hoffa's fat pad. There is no evidence of meniscal tear. She denies any locking or catching . She does not use any assistive devices or braces. She takes ibuprofen for pain control. LEFT KNEE EXAMINATION: 0 to 120 degrees range of motion, stable to varus valgus stress, negative Lac hman, negative anterior drawer, negative posterior drawer, negative Oliver's. 5/5 quadriceps, tibi inder anterior, gastric soleus. IMPRESSION: A 57-year-old female with left knee Hoffa's fat pad inflammation. PLAN: She was given a prescription for meloxicam. We will request authorization for left knee stero id injection. She will follow up within 6 weeks. Dictated By: LEOBARDO JEFF/BERTA Conf#: [id number] DID#: [id number]
== END | disposition home or self-care (01) ==
LOC: HKI 15:37
PROVIDERS: ATTEND Orthopaedic Surgery Adult Reconstructive Orthopaedic Surgery
DX: M79.4 Hypertrophy of (infrapatellar) fat pad (principal); E88.89 Other specified metabolic disorders; M25.562 Pain in left knee
CPT/HCPCS: G0463